=== PATIENT | male | born 1975 | race Caucasian/White ===

== ENCOUNTER 2022-02-17 11:58 | Inpatient (IN) | payer OTHER ==
[2022-02-17] MEDS ORDERED: SODIUM CHLORIDE 1,000 ML IV STA (13:35)
[2022-02-17] MEDS ORDERED: FAMOTIDINE 20 MG/50 ML IVPB 50 ML IVPB ONE (13:35)
[2022-02-17] MEDS ORDERED: ONDANSETRON 4 MG/2 ML VIAL IVPUSH ONE (13:36)
[2022-02-17] MEDS ORDERED: ONDANSETRON 4 MG/2 ML VIAL ONE (14:07)
[2022-02-17] MEDS ORDERED: FAMOTIDINE/PF 20 MG/2 ML VIAL IVPB ONE (14:15)
[2022-02-17] MEDS ORDERED: FAMOTIDINE 10 MG/ML VIAL IVPB ONE ×2 (14:16→22:17)
[2022-02-17 14:59] LABS: BASO % 0.4 % (0-2.0); EOS % 21.2 % (0-4.5); HEMATOCRIT 46.8 % (35.4-49); LYMPH % 17.4 % (8-40); MCH 30.2 pg (25.7-33.7); MCHC 34.1 g/dl (32.0-35.9); MEAN CELL VOLUME 88.5 fl (80-96); MEAN PLT VOLUME 9.4 fl (7.5-11.1); PLATELET COUNT 232 10^3/uL (134-434); RBC 5.29 M/mm3 (4.00-5.60); RDW 13.3 % (11.9-15.9); WHITE BLOOD COUNT 12.3 K/mm3 (4.0-10.0)
[2022-02-17 15:00] LABS: PH,URINE 5.5 (5.0-8.0); URINE APPEARANCE CLEAR; URINE BILIRUBIN NEGATIVE (NEGATIVE); URINE COLOR YELLOW; URINE GLUCOSE (UA) NEGATIVE (NEGATIVE); URINE KETONE NEGATIVE (NEGATIVE); URINE LEUK ESTERASE NEGATIVE (NEGATIVE); URINE NITRITE NEGATIVE (NEGATIVE); URINE PROTEIN NEGATIVE (NEGATIVE)
[2022-02-17 15:19] LABS: CHLORIDE 108 mmol/L (98-107); SODIUM 138 mmol/L (136-145)
[2022-02-17 15:21] LABS: ALBUMIN 4.5 g/dl (3.4-5.0); AMYLASE 91 U/L (25-115); BLOOD UREA NITROGEN 14.1 mg/dL (7-18); CALCIUM 9.6 mg/dL (8.5-10.1); CO2 28 mmol/L (21-32); GLUCOSE,RANDOM 108 mg/dL (74-106); LIPASE 160 U/L (73-393)
[2022-02-17 15:23] LABS: CREATININE 1.2 mg/dL (0.55-1.3); SGOT/AST 63 U/L (15-37)
[2022-02-17 15:25] LABS: SGPT/ALT 36 U/L (13-61)
[2022-02-17 15:26] LABS: ALK PHOS 90 U/L (45-117); TOT PROT 8.2 g/dl (6.4-8.2)
[2022-02-17 15:31] LABS: ANION GAP 3 MMOL/L (8-16)
[2022-02-17 15:37] LABS: ANISOCYTOSIS 0; MACROCYTOSIS 0
[2022-02-17] MEDS ORDERED: SODIUM CHLORIDE 0.9% 500 ML INFUS.BAG IV ONE (16:48)
[2022-02-17] MEDS ORDERED: ACETAMINOPHEN 1000 MG/100 ML BAG IVPB PRN (18:27)
[2022-02-17] MEDS ORDERED: ONDANSETRON 4 MG/2 ML VIAL IVPUSH PRN (19:38)
[2022-02-17] MEDS ORDERED: LIDOCAINE HCL 2% JELLY 10 ML CARTRIDGE ONE ×2 (20:11→21:05)
[2022-02-17] MEDS ORDERED: FAMOTIDINE 20 MG/50 ML IVPB 20 MG/50 ML MG IVPB SCH (22:00)
[2022-02-17] MEDS: FAMOTIDINE/PF 20 MG/2 ML VIAL IVPB SCH (22:33)
[2022-02-18] MEDS: DEXTROSE 5%-0.45% SALINE 1,000 ML IV SCH ×3 (01:10→22:14)
[2022-02-18] MEDS ORDERED: morphine CARPU-JECT 2 MG/1 ML DISP.SYRIN IM ONE (02:13)
[2022-02-18 02:40] VITALS: BMI 28.3
[2022-02-18 08:51] LABS: HEMATOCRIT 40.9 % (35.4-49); HEMOGLOBIN 13.9 GM/dL (11.7-16.9); MCH 29.9 pg (25.7-33.7); MEAN CELL VOLUME 88.1 fl (80-96); PLATELET COUNT 183 10^3/uL (134-434); RBC 4.64 M/mm3 (4.00-5.60); RDW 13.2 % (11.9-15.9); WHITE BLOOD COUNT 12.7 K/mm3 (4.0-10.0)
[2022-02-18 09:07] LABS: CALCIUM 8.8 mg/dL (8.5-10.1)
[2022-02-18 09:09] LABS: BLOOD UREA NITROGEN 14.8 mg/dL (7-18)
[2022-02-18] MEDS: FAMOTIDINE/PF 20 MG/2 ML VIAL IVPB SCH ×2 (10:24→22:07)
[2022-02-18 12:29] LABS: ANISOCYTOSIS 0; MACROCYTOSIS 0
[2022-02-18] MEDS ORDERED: BENZOCAINE/MENTHOL 1 EACH LOZENGE MM ONE (15:34)
[2022-02-18] MEDS: INSULIN SLIDING SCALE (NOVOLOG) 1 VIAL SQ SCH ×2 (16:47→22:14)
[2022-02-19] MEDS: INSULIN SLIDING SCALE (NOVOLOG) 1 VIAL SQ SCH ×4 (06:14→21:11)
[2022-02-19 08:36] LABS: BASO % 0.2 % (0-2.0); HEMATOCRIT 42.2 % (35.4-49); HEMOGLOBIN 14.4 GM/dL (11.7-16.9); LYMPH % 10.4 % (8-40); MCH 30.1 pg (25.7-33.7); MCHC 34.2 g/dl (32.0-35.9); MEAN CELL VOLUME 88.1 fl (80-96); MEAN PLT VOLUME 8.1 fl (7.5-11.1); MONO % 4.9 % (3.8-10.2); NEUT % 72.5 % (42.8-82.8); PLATELET COUNT 195 10^3/uL (134-434); RBC 4.79 M/mm3 (4.00-5.60); RDW 13.2 % (11.9-15.9); WHITE BLOOD COUNT 13.9 K/mm3 (4.0-10.0)
[2022-02-19] MEDS ORDERED: BENZOCAINE/MENTH/CETYLPYRD CL 1 EACH LOZENGE MM PRN (08:36)
[2022-02-19 09:05] LABS: BLOOD UREA NITROGEN 11.8 mg/dL (7-18); CALCIUM 9.1 mg/dL (8.5-10.1)
[2022-02-19 09:09] LABS: CREATININE 1.1 mg/dL (0.55-1.3)
[2022-02-19] MEDS: FAMOTIDINE/PF 20 MG/2 ML VIAL IVPB SCH ×2 (10:38→21:10)
[2022-02-19] MEDS: ENOXAPARIN NA (PORCINE) 40 MG/0.4 ML DISP.SYRIN SQ SCH (10:38)
[2022-02-19] MEDS: DEXTROSE 5%-0.45% SALINE 1,000 ML IV SCH ×3 (14:47→21:09)
[2022-02-19] MEDS: ACETAMINOPHEN 325 MG TABLET (FP) PO PRN (17:27)
[2022-02-20] MEDS: INSULIN SLIDING SCALE (NOVOLOG) 1 VIAL SQ SCH ×4 (06:19→21:22)
[2022-02-20 09:20] LABS: BASO % 0.2 % (0-2.0); EOS % 4.9 % (0-4.5); HEMATOCRIT 40.7 % (35.4-49); HEMOGLOBIN 14.1 GM/dL (11.7-16.9); LYMPH % 8.1 % (8-40); MCH 30.3 pg (25.7-33.7); MCHC 34.7 g/dl (32.0-35.9); MEAN CELL VOLUME 87.4 fl (80-96); MEAN PLT VOLUME 8.5 fl (7.5-11.1); MONO % 7.6 % (3.8-10.2); NEUT % 79.2 % (42.8-82.8); PLATELET COUNT 165 10^3/uL (134-434); RBC 4.66 M/mm3 (4.00-5.60); RDW 12.9 % (11.9-15.9); WHITE BLOOD COUNT 8.7 K/mm3 (4.0-10.0)
[2022-02-20] MEDS: ENOXAPARIN NA (PORCINE) 40 MG/0.4 ML DISP.SYRIN SQ SCH (09:22)
[2022-02-20 09:34] LABS: BLOOD UREA NITROGEN 11.2 mg/dL (7-18); CREATININE 1.3 mg/dL (0.55-1.3)
[2022-02-20] MEDS: FAMOTIDINE/PF 20 MG/2 ML VIAL IVPB SCH ×2 (09:52→21:20)
[2022-02-20] MEDS: DEXTROSE 5%-0.45% SALINE 1,000 ML IV SCH ×2 (12:16→21:21)
[2022-02-20] MEDS: ACETAMINOPHEN 325 MG TABLET (FP) PO PRN ×2 (13:26→21:19)
[2022-02-21] MEDS: DEXTROSE 5%-0.45% SALINE 1,000 ML IV SCH ×2 (01:09→19:00)
[2022-02-21] MEDS: ACETAMINOPHEN 325 MG TABLET (FP) PO PRN (05:48)
[2022-02-21] MEDS: INSULIN SLIDING SCALE (NOVOLOG) 1 VIAL SQ SCH ×4 (06:14→22:05)
[2022-02-21] MEDS: ENOXAPARIN NA (PORCINE) 40 MG/0.4 ML DISP.SYRIN SQ SCH (09:20)
[2022-02-21 09:32] LABS: BASO % 0.7 % (0-2.0); EOS % 6.8 % (0-4.5); HEMATOCRIT 43.9 % (35.4-49); HEMOGLOBIN 15.1 GM/dL (11.7-16.9); LYMPH % 16.2 % (8-40); MCH 30.1 pg (25.7-33.7); MCHC 34.4 g/dl (32.0-35.9); MEAN CELL VOLUME 87.5 fl (80-96); MEAN PLT VOLUME 8.3 fl (7.5-11.1); MONO % 10.1 % (3.8-10.2); NEUT % 66.2 % (42.8-82.8); PLATELET COUNT 180 10^3/uL (134-434); RBC 5.02 M/mm3 (4.00-5.60); RDW 13.2 % (11.9-15.9); WHITE BLOOD COUNT 6.3 K/mm3 (4.0-10.0)
[2022-02-21 09:57] LABS: BLOOD UREA NITROGEN 10.8 mg/dL (7-18); CALCIUM 9.2 mg/dL (8.5-10.1)
[2022-02-21 10:00] LABS: CREATININE 1.2 mg/dL (0.55-1.3)
[2022-02-21] MEDS: FAMOTIDINE/PF 20 MG/2 ML VIAL IVPB SCH ×2 (10:50→22:05)
[2022-02-21 11:54] LABS: URINE APPEARANCE CLEAR; URINE BILIRUBIN NEGATIVE (NEGATIVE); URINE COLOR YELLOW; URINE GLUCOSE (UA) NEGATIVE (NEGATIVE); URINE KETONE NEGATIVE (NEGATIVE); URINE LEUK ESTERASE NEGATIVE (NEGATIVE); URINE NITRITE NEGATIVE (NEGATIVE); URINE PROTEIN NEGATIVE (NEGATIVE)
[2022-02-21 18:12] LABS: SARS-CoV-2 NAA Not Detected (Not Detected)
[2022-02-22] MEDS: INSULIN SLIDING SCALE (NOVOLOG) 1 VIAL SQ SCH ×2 (06:07→11:06)
[2022-02-22] MEDS: DEXTROSE 5%-0.45% SALINE 1,000 ML IV SCH (08:30)
[2022-02-22] MEDS: ENOXAPARIN NA (PORCINE) 40 MG/0.4 ML DISP.SYRIN SQ SCH (09:32)
[2022-02-22] MEDS: FAMOTIDINE/PF 20 MG/2 ML VIAL IVPB SCH (09:32)
[2022-02-22 12:26] LABS: BLOOD UREA NITROGEN 11.8 mg/dL (7-18)
[2022-02-22 12:28] LABS: CALCIUM 9.1 mg/dL (8.5-10.1)
[2022-02-22 12:29] LABS: CREATININE 1.2 mg/dL (0.55-1.3); MAGNESIUM 2.4 mg/dL (1.8-2.4); PHOSPHOROUS 3.7 mg/dL (2.5-4.9)
[2022-02-22 13:52] VITALS: BP 125/76; PULSE 80; TEMP 98.6
== END 2022-02-22 15:23 | disposition home or self-care (01) | DRG 390 ==
LOC: JER 11:58 → JERBED 18:33 → J6S 02-18 00:19
PROVIDERS: ADMIT Internal Medicine; ATTEND Internal Medicine
PROC: 0D9670Z Drainage of Stomach with Drainage Device, Via Natural or Artificial Opening (ICD-10-PCS; principal; 2022-02-17)
DX: K56.690 Other partial intestinal obstruction (principal); E11.9 Type 2 diabetes mellitus without complications; D72.118 Other hypereosinophilic syndrome
CPT/HCPCS: 36415; 71045-TC-FY; 71046-TC-FY; 74019-TC-FY; 74177-TC; 80048; 80053; 81003; 82150; 82962; 83690; 83735; 84100; 84132; 84484; 85025; 85027; 87040; 87804; 93005; 93010; 99285-25; C9803-CS; Q9967; U0003; U0005